=== PATIENT | female | born 1955 | race Caucasian/White ===

== ENCOUNTER → 2016-08-04 | Outpatient (CLI) | payer BC ==
[2015-05-29 08:57] VITALS: BP 134/60
[~2016-08-04] MED LIST: BUPIVACAINE MPF 0.5% 10 ML VIAL for KCIC. IJ ONE; IOHEXOL 300 MG/ML 75 ML VIAL INT ART ONE; LEVO75TA5 PO; LIDOCAINE 1% Multi-Dose 20 ML VIAL. ID ONE; LORA10TA68 PO; LOSA50TA2 PO; MONT10TA6 PO; MULT-208 PO; OMEG1CAP28 PO; methylPREDNISolone ACETATE 40 MG/ML VIAL. INT ART ONE
--- NOTE | 2016-08-04 14:48 | KCIC ---
PROCEDURE Therapeutic right hip injection using fluoroscopic guidance. HISTORY Hip pain. TECHNIQUE The procedure was explained to the patient as were potential risks, including infection, bleeding or allergic reaction. All questions were answered. Informed written and verbal consent was obtained. The hip was prepped and draped in the usual sterile manner. Following administration of local anesthetic, a 22-gauge spinal needle was advanced into the hip joint without difficulty, with care taken to avoid the vascular structures. Stylet was removed and following negative aspiration, a mixture of 4 cc Omnipaque-300, 2 cc (80 mg) Depo-Medrol, 4 cc 0.5% Marcaine and 4 cc 1% lidocaine were injected without difficulty. Fluoroscopy demonstrates uniform and satisfactory distribution of the injection through the hip. The needle was removed. There was good hemostasis at the injection site. The patient left in stable condition without immediate complication. The patient was given postprocedural instructions, instructed to contact us or the emergency room if there are any complications. A single spot image was obtained. FLUOROSCOPY TIME: 30 seconds Electronically signed by: Camacho Fowler MD (Aug 04, 2016 14:46:52)
== END | disposition home or self-care (01) ==
LOC: KCIC 13:12
PROVIDERS: ATTEND Orthopaedic Surgery Sports Medicine
DX: M25.551 Pain in right hip (principal); I10 Essential (primary) hypertension
CPT/HCPCS: 20610; 77002; J1030; Q9967

== ENCOUNTER → 2017-05-20 | Outpatient (CLI) | payer BC ==
[2015-05-29 08:57] VITALS: BP 134/60
[~2017-05-20] MED LIST changes: -BUPIVACAINE MPF 0.5% 10 ML VIAL for KCIC. IJ ONE; -IOHEXOL 300 MG/ML 75 ML VIAL INT ART ONE; -LIDOCAINE 1% Multi-Dose 20 ML VIAL. ID ONE; -methylPREDNISolone ACETATE 40 MG/ML VIAL. INT ART ONE
--- NOTE | 2017-05-20 15:47 | RAD ---
DATE: 05/20/2017 EXAM: DIGITAL SCREEN BILAT W/CAD HISTORY: Screening study. COMPARISON: 05/18/2016 This study was interpreted with the benefit of Computerized Aided Detection (CAD). The breast parenchyma is heterogeneously dense, which could reduce sensitivity of mammography. Breast parenchyma level C. FINDINGS: Digital MLO and CC mammograms of both breasts were obtained. Comparison study is dated 05/18/2016. The breast parenchyma is heterogeneously dense which can obscure a lesion on mammography. No spiculated mass is seen. No malignant appearing calcification or area of architectural distortion is noted. Since the previous examination there has been no significant interval change. IMPRESSION: BI-RADS Category 1, negative. There is no mammographic evidence malignancy. Routine yearly screening mammography is recommended for follow-up. BI-RADS CATEGORY: 1 NEGATIVE RECOMMENDED FOLLOW-UP: 12M 12 MONTH FOLLOW-UP PQRS compliance statement: Patient information was entered into a reminder system with a target due date 05/20/2018 for the next mammogram. Mammography is a sensitive method for finding small breast cancers, but it does not detect them all and is not a substitute for careful clinical examination. A negative mammogram does not negate a clinically suspicious finding and should not result in delay in biopsying a clinically suspicious abnormality. "Our facility is accredited by the [employer] Mammography [employer]."
== END | disposition home or self-care (01) ==
LOC: MAMMO 09:52
PROVIDERS: ATTEND Obstetrics & Gynecology
DX: Z12.31 Encounter for screening mammogram for malignant neoplasm of breast (principal)
CPT/HCPCS: G0202; 77067

== ENCOUNTER → 2018-05-26 | Outpatient (CLI) | payer BC ==
[2015-05-29 08:57] VITALS: BP 134/60
[~2018-05-26] MED LIST changes: +LOSA-73 PO; -LOSA50TA2 PO
--- NOTE | 2018-05-26 12:22 | RAD ---
DATE: 05/26/2018 EXAM: DIGITAL SCREEN BILAT W/CAD HISTORY: Routine screening COMPARISON: 05/20/2017 This study was interpreted with the benefit of Computerized Aided Detection (CAD). Breast Density: SCATTERED The breast parenchyma shows scattered fibroglandular densities. Breast parenchyma level B. FINDINGS: There is a nodular opacity projected over the inferomedial aspect of the left breast which is unchanged since multiple previous studies. No new or enlarging breast densities are seen. No suspicious microcalcifications are evident. IMPRESSION: Stable mammograms without evidence of malignancy. BI-RADS CATEGORY: 2 BENIGN FINDING(S) RECOMMENDED FOLLOW-UP: 12M 12 MONTH FOLLOW-UP PQRS compliance statement: Patient information was entered into a reminder system with a target due date for the next mammogram. Mammography is a sensitive method for finding small breast cancers, but it does not detect them all and is not a substitute for careful clinical examination. A negative mammogram does not negate a clinically suspicious finding and should not result in delay in biopsying a clinically suspicious abnormality. "Our facility is accredited by the [employer] Mammography Program."
== END | disposition home or self-care (01) ==
LOC: MAMMO 09:45
PROVIDERS: ATTEND Obstetrics & Gynecology
DX: Z12.31 Encounter for screening mammogram for malignant neoplasm of breast (principal)
CPT/HCPCS: 77067

== ENCOUNTER → 2019-06-03 | Outpatient (CLI) | payer BC ==
[2015-05-29 08:57] VITALS: BP 134/60
[~2019-06-03] MED LIST changes: +MONT10TA49 PO; -MONT10TA6 PO
--- NOTE | 2019-06-05 16:52 | RAD ---
DATE: 06/03/2019 EXAM: DIGITAL SCREEN BILAT W/CAD HISTORY: Routine screening COMPARISON: 05/16/2014, 05/17/2015, 05/18/2016, 05/20/2017, 05/26/2018 mammographic exams This study was interpreted with the benefit of Computerized Aided Detection (CAD). Breast Density: SCATTERED The breast parenchyma shows scattered fibroglandular densities. Breast parenchyma level B. FINDINGS: Small mass at the left lower outer breast is stable compared to prior exams. No suspicious calcification or distortion in the interval. No suspicious mass. IMPRESSION: Stable BI-RADS CATEGORY: 1 NEGATIVE RECOMMENDED FOLLOW-UP: 12M 12 MONTH FOLLOW-UP PQRS compliance statement: Patient information was entered into a reminder system with a target due date for the next mammogram. Mammography is a sensitive method for finding small breast cancers, but it does not detect them all and is not a substitute for careful clinical examination. A negative mammogram does not negate a clinically suspicious finding and should not result in delay in biopsying a clinically suspicious abnormality. "Our facility is accredited by the [employer] Mammography [employer]."
== END | disposition home or self-care (01) ==
LOC: MAMMO 09:42
PROVIDERS: ATTEND Obstetrics & Gynecology
DX: Z12.31 Encounter for screening mammogram for malignant neoplasm of breast (principal); N63.23 Unspecified lump in the left breast, lower outer quadrant
CPT/HCPCS: 77067

== ENCOUNTER 2020-09-08 18:16 | Emergency (ER) | payer BC ==
[~2020-09-08] VITALS: Ht 167.6 cm; Wt 55.5 kg
--- NOTE | 2020-09-08 19:56 | RAD ---
Exam: Right ankle 3 views. Right foot 3 views INDICATION: Swelling and bruising TECHNIQUE: Frontal, lateral and oblique views of the right ankle and right foot Comparisons: None FINDINGS: Ankle: Bone mineralization is normal. No acute or healed fractures. Soft tissues are unremarkable. Joint spa basilia are well-maintained. Foot: Bone mineralization is normal. No acute or healed fractures. Soft tissues are unremarkable. Joint spa basilia are well-maintained. IMPRESSION: No acute osseous abnormality of the right ankle and right foot. Electronically signed by: Irvin Bang MD (09/08/2020 7:54 PM) ANA
[2020-09-08] MEDS ORDERED: IBUP-1007 PO (20:04)
--- NOTE | 2020-09-08 20:05 | PHYS DOC ---
Past Medical History Past Medical History: Hypertension, Hypothyroid, Other Additional Past Medical Histor: SEASONAL ALLERGIES (DANY GOMES PSYCHOLOGIST ENGINEERING) Past Surgical History: Other Additional Past Surgical Histo: RIGHT BREAST BX (DANY GOMES PSYCHOLOGIST ENGINEERING) Smoking Status: Never Smoker Alcohol Use: None Drug Use: None (DANY GOMES APRN) General Adult EDM: Chief Complaint: FOOT INJURY PAIN HPI: HPI: Patient is a 65 year old female who presents with was stepping over a baby gate when she tripped rolling her right ankle. She states it was not hurting very bad and she has been up and walking on it all day. She states about this afternoon started noticing pain and stiffness and has since been unable to walk on it. She has lateral right ankle and foot swelling and bruising. She rates her pain a 6 out of 10. She is refusing any pain medication at this time. She has a history of hypertension, hypothyroidism, seasonal allergies and right breast biopsy. (DANY GOMES PSYCHOLOGIST ENGINEERING) Review of Systems: Review of Systems: Constitutional: Denies fever or chills. [] Eyes: Denies change in visual acuity. [] HENT: Denies nasal congestion or sore throat. [] Respiratory: Denies cough or shortness of breath. [] Cardiovascular: Denies chest pain. + Right foot edema, + right ankle edema. [] GI: Denies abdominal pain, nausea, vomiting, bloody stools or diarrhea. [] : Denies dysuria. [] Musculoskeletal: Denies back pain. + Right foot joint pain. + Right ankle pain [] Integument: Denies rash. + Right foot bruising, + right ankle bruising [] Neurologic: Denies headache, focal weakness or sensory changes. [] Endocrine: Denies polyuria or polydipsia. [] Lymphatic: Denies swollen glands. [] Psychiatric: Denies depression or anxiety. [] (DANY GOMES PSYCHOLOGIST ENGINEERING) Heart Score: C/O Chest Pain: No Risk Factors: Risk Factors: DM, Current or recent (<one month) smoker, HTN, HLP, family history of CAD, obesity. Risk Scores: Score 0 - 3: 2.5% MACE over next 6 weeks - Discharge Home Score 4 - 6: 20.3% MACE over next 6 weeks - Admit for Clinical Observation Score 7 - 10: 72.7% MACE over next 6 weeks - Early Invasive Strategies ([facility]) Allergies: Allergies: Allergies Coded Allergies Type Severity Reaction Last Updated Verified Sulfa (Sulfonamide Antibiotics) Allergy Intermediate HIVES 05/29/15 Yes (DANY GOMES PSYCHOLOGIST ENGINEERING) Physical Exam: PE: Constitutional: Well developed, well nourished, no acute distress, non-toxic appearance. [] HENT: Normocephalic, atraumatic, bilateral external ears normal, oropharynx moist, no oral exudates, nose normal. [] Eyes: PERRLA, EOMI, conjunctiva normal, no discharge. [] Neck: Normal range of motion, no tenderness, supple, no stridor. [] Cardiovascular:Heart rate regular rhythm, no murmur [] Lungs & Thorax: Bilateral breath sounds clear to auscultation [] Abdomen: Bowel sounds normal, soft, no tenderness, no masses, no pulsatile masses. [] Skin: Warm, dry, no erythema, no rash. Right lateral ankle and foot bruising [] Back: No tenderness, no CVA tenderness. [] Extremities: Right lateral foot and ankle tenderness, no cyanosis, no clubbing, right ankle ROM admitted but intact, right lateral foot and ankle 2+ edema. [] Neurologic: Alert and oriented X 3, normal motor function, normal sensory function, no focal deficits noted. [] Psychologic: Affect normal, judgement normal, mood normal. [] ([employer]) Current Patient Data: Vital Signs: Vital Signs Date Time Temp Pulse Resp B/P (MAP) Pulse Ox O2 Delivery O2 Flow Rate FiO2 09/08/20 19:20 98.1 83 20 157/79 (105) 99 Room Air 98.1 ([facility]) EKG: EKG: [] ([employer]) Radiology/Procedures: Radiology/Procedures: [] Impression: [facility] [address] [place], [place] [id number] IMAGING REPORT Signed PATIENT: EUGENIA HSU ACCOUNT: [id number] : 1955 LOCATION: ER AGE: 65 SEX: F EXAM STATUS: REG ER ORD. PHYSICIAN: DANY GOMES APRN REASON: SWELLING AND BRUISING PROCEDURE: ANKLE RIGHT 3V Exam: Right ankle 3 views. Right foot 3 views INDICATION: Swelling and bruising TECHNIQUE: Frontal, lateral and oblique views of the right ankle and right foot Comparisons: None FINDINGS: Ankle: Bone mineralization is normal. No acute or healed fractures. Soft tissues are unremarkable. Joint spaces are well-maintained. Foot: Bone mineralization is normal. No acute or healed fractures. Soft tissues are unremarkable. Joint spaces are well-maintained. IMPRESSION: No acute osseous abnormality of the right ankle and right foot. Electronically signed by: Irvin Lawler MD (09/08/2020 7:54 PM) [facility] DICTATED and SIGNED BY: IRVIN LAWLER MD DATE: 09/08/20 [id number] (DANY GOMES APRN) Course & Med Decision Making: Course & Med Decision Making Pertinent Labs and Imaging studies reviewed. (See chart for details) See HPI. Alert and oriented x4. Ambulatory with a steady gait. Right lateral ankle and foot swelling 2+ with tenderness and bruising. Skin pink warm and d ry. Pedal pulse strong and present. Cap refill less than 2 seconds. X-ray shows no acute findings. I will put her in a walking boot. She can follow-up with orthopedics. [] (DANY GOMES APRN) Dragon Disclaimer: Dragjose Disclaimer: This electronic medical record was generated, in whole or in part, using a voice recognition dictation system. (DANY GOMES APRN) Departure Departure Impression: Primary Impression: Ankle pain, right Qualified Codes: M25.571 - Pain in right ankle and joints of right foot Additional Impression: Foot pain, right Disposition: 01 DC HOME SELF CARE/HOMELESS Condition: STABLE Referrals: CAM LOPEZ MD (PCP) Patient Instructions: Ankle Sprain, Foot Sprain Additional Instructions: Follow-up with orthopedics as soon as possible. Use ice and elevation to help with pain and swelling. Take ibuprofen to help with your pain. Scripts Ibuprofen (IBUPROFEN) 600 Mg Tablet 600 MG PO PRN Q6HRS PRN for INFLAMMATION, #26 TAB Prov: DANY GOMES APRN 09/08/20 Attending Signature Attending Signature I have reviewed the PA/RESPITE PROVIDER's note and plan of care. I was available for consultation as needed during the patient's visit in the emergency department. I agree with the clinical impression, plan, and disposition. (RAJENDRA KNUTSON DO) DANY GOMES APRN Sep 08, 2020 20:05 RAJENDRA KNUTSON DO Sep 09, 2020 02:57
[2020-09-08 21:10] VITALS: BP 164/80
== END 2020-09-08 21:18 | disposition home or self-care (01) ==
LOC: ER 18:16
DX: M25.571 Pain in right ankle and joints of right foot (principal); M79.671 Pain in right foot; R60.0 Localized edema; I10 Essential (primary) hypertension; E03.9 Hypothyroidism, unspecified; Z98.890 Other specified postprocedural states; Z88.2 Allergy status to sulfonamides
CPT/HCPCS: 73610; 73630; 99285

== ENCOUNTER → 2020-11-12 | Outpatient (CLI) | payer BC ==
[~2020-11-12] MED LIST changes: +IBUP-1007 PO
--- NOTE | 2020-11-12 09:55 | RAD ---
PROCEDURE: MG 2D BILAT SCREENING HISTORY: The patient is 65 years old and is seen for Reason: SCREENING / Spl. Instructions: / Histor y: . COMPARISON: June 03, 2019, May 26, 2018 and May 20, 2017 TECHNIQUE: CC and MLO views of both breasts were obtained. Images were processed by the [employer] computer-aided detection system. DENSITY: The breast parenchyma is heterogeneously dense. This may lower the sensitivity of mammograph y. FINDINGS: Right breast: No suspicious microcatheter ossifications, mass or architectural distortion. Left breast: Unchanged left medial inferior breast mass compared to 2018. No new suspicious mass, arc hitectural distortion or microcalcification. IMPRESSION: Negative. No evidence of malignancy. Recommend annual screening mammograms per [employer] guidelines. She will be due in one year. BI-RADS category 2 Benign Patient entered into a reminder system for annual screening mammogram. Electronically signed by: Anselmo Gupta DO (11/12/2020 9:53 AM) [id number]
== END ==
LOC: MAMMO 08:32
PROVIDERS: ATTEND Family Medicine
DX: Z12.31 Encounter for screening mammogram for malignant neoplasm of breast (principal)
CPT/HCPCS: 77067